=== PATIENT | female | born 1960 | race Caucasian/White ===

== ENCOUNTER → 2020-01-16 | Outpatient (CLI) | payer BC ==
[2020-01-16 10:16] LABS: Basophils # (A) 0.1 k/uL (0-0.2); Basophils % (A) 1 %; Eosinophils # (A) 0.3 k/uL (0-0.7); Eosinophils % (A) 4 %; HCT 49.9 % (34.0-46.0); HGB 15.5 gm/dL (11.4-16.0); Lymphocytes # (A) 1.6 k/uL (1.0-4.8); Lymphocytes % (A) 27 %; MCH 28.7 pg (25.0-35.0); MCV 92.7 fL (80.0-100.0); Mean Platelet Volume 7.5; Monocytes # (A) 0.4 k/uL (0-1.0); Monocytes % (A) 6 %; Neutrophils # (A) 3.7 k/uL (1.3-7.7); Neutrophils % (A) 61 %; Platelet Count 204 k/uL (150-450); RBC 5.38 m/uL (3.80-5.40); RDW 13.4 % (11.5-15.5); WBC 6.1 k/uL (3.8-10.6)
== END | disposition home or self-care (01) ==
LOC: LABPAT 08:26
PROVIDERS: ATTEND Surgery
DX: Z01.818 Encounter for other preprocedural examination (principal); K43.2 Incisional hernia without obstruction or gangrene
CPT/HCPCS: 36415; 85025; 93005

== ENCOUNTER 2020-01-27 06:41 | Observation (INO) | payer BC ==
[2020-01-22 10:55] VITALS: BMI 29.9
[~2020-01-27 06:41] MED LIST: ACETAMINOPHEN TAB 500 MG TAB PO ONE; DEXAMETHASONE SOD PHOSPHATE 10 MG/ML 1 ML VIAL IV ONE; HEPARIN SODIUM,PORCINE 5,000 UNIT/ML 1 ML VIAL SQ ONE; ONDANSETRON 4 MG/2 ML VIAL IVP ONE
[2020-01-27] MEDS: LACTATED RINGERS 1,000 ML IV SCH ×2 (07:37→20:28)
[2020-01-27 07:45] LABS: Glucose,Whole Blood 125 mg/dL (75-99)
--- NOTE | 2020-01-27 07:57 | P.GSHP ---
History of Present Illness H&P Date: 01/27/20 Chief Complaint: Incarcerated ventral hernia 59-year-old female here today with complaints of an incarcerated ventral hernia. Has been increasing in size. Mild pain at times. No change in bowel habits. History of previous umbilical hernia repair. Past Medical History Past Medical History: Cancer, COPD, Diabetes Mellitus, Hyperlipidemia Additional Past Medical History / Comment(s): cervical cancer History of Any Multi-Drug Resistant Organisms: None Reported Past Surgical History: Bladder Surgery, Hernia Repair, Tonsillectomy Additional Past Surgical History / Comment(s): cervical conization Past Anesthesia/Blood Transfusion Reactions: Postoperative Nausea & Vomiting (PONV) Smoking Status: Current every day smoker - Past Family History Father Family Medical History: Cancer Mother Family Medical History: Cancer Medications and Allergies Home Medications Medication Instructions Recorded Confirmed Type Budesonide/Formoterol Fumarate 1 puff INHALATION QID PRN 01/22/20 01/27/20 History [Symbicort 160-4.5 Mcg Inhaler] Meloxicam 15 mg PO DAILY 01/22/20 01/27/20 History Multivitamins, Thera [Multivitamin 1 tab PO DAILY 01/22/20 01/27/20 History (formulary)] Rosuvastatin [Crestor] 10 mg PO DAILY 01/22/20 01/27/20 History Ubidecarenone [Co Q-10] 100 mg PO DAILY 01/22/20 01/27/20 History lisinopriL [Zestril] 5 mg PO DAILY 01/22/20 01/27/20 History metFORMIN HCL [Glucophage] 1,000 mg PO DAILY 01/22/20 01/27/20 History Allergies Allergy/AdvReac Type Severity Reaction Status Date / Time No Known Allergies Allergy Verified 01/27/20 07:18 Surgical - Exam Vital Signs Temp Pulse Resp BP Pulse Ox 97.2 F L 83 16 117/69 98 01/27/20 07:31 01/27/20 07:31 01/27/20 07:31 01/27/20 07:31 01/27/20 07:31 Physical exam: General: Well-developed, well-nourished HEENT: Normocephalic, sclerae nonicteric Abdomen: Nontender, nondistended, incarcerated ventral hernia 5-6 cm above the umbilicus Extremities: No edema Neuro: Alert and oriented Results - Labs Abnormal Lab Results - Last 24 Hours (Table) 01/27/20 Range/Units 07:35 POC Glucose (mg/dL) 125 H (75-99) mg/dL Assessment and Plan (1) Incarcerated ventral hernia Narrative/Plan: Will proceed with repair incarcerated ventral hernia with possible mesh at this time. Risks of bleeding, infection, recurrence, bladder and bowel injury, numbness, nerve injury were discussed with the patient. The patient understands and wishes to proceed. Current Visit: Yes Status: Acute Code(s): K43.6 - OTHER AND UNSP VENTRAL HERNIA WITH OBSTRUCTION, W/O GANGRENE SNOMED Code(s): 112387580
[2020-01-27] MEDS ORDERED: PROPOFOL 10 MG/ML 20 ML VIAL IV ONE (09:05)
[2020-01-27] MEDS ORDERED: fentaNYL (PF) 50 MCG/ML 2 ML AMP ONE (09:05)
[2020-01-27] MEDS ORDERED: GLYCOPYRROLATE 0.2 MG/ML 2 ML VIAL ONE (09:05)
[2020-01-27] MEDS ORDERED: NEOSTIGMINE 1 MG/ML 10 ML VIAL ONE (09:05)
[2020-01-27] MEDS ORDERED: ROCURONIUM 10 MG/ML (10 ML VIAL) IV ONE (09:05)
[2020-01-27] MEDS ORDERED: SUCCINYLCHOLINE CHLORIDE 100 MG/5 ML SYR IV ONE (09:05)
[2020-01-27] MEDS ORDERED: MIDAZOLAM 2 MG/2 ML VIAL ONE (09:05)
[2020-01-27] MEDS ORDERED: BUPIVACAINE (PF) 0.25% 30 ML VIAL SQ ONE (10:16)
[2020-01-27] MEDS ORDERED: ONDANSETRON 4 MG/2 ML VIAL IVP PRN (10:32)
[2020-01-27] MEDS ORDERED: oxyCODONE-APAP 5-325MG 1 EACH TAB PO PRN (10:32)
[2020-01-27] MEDS ORDERED: HYDROmorphone 0.5 MG/0.5 ML SYRINGE IVP PRN (10:32)
[2020-01-27] MEDS ORDERED: NALOXONE 0.4 MG/ML 1 ML VIAL IV PRN (10:32)
[2020-01-27] MEDS: HYDROmorphone 0.5 MG/0.5 ML SYRINGE IVP PRN ×3 (10:35→11:05)
--- NOTE | 2020-01-27 10:39 | P.OP ---
Date of Procedure: 01/27/20 Procedure(s) Performed: PREOPERATIVE DIAGNOSIS: Incarcerated ventral hernia POSTOPERATIVE DIAGNOSIS: Same, recurrent umbilical hernia PROCEDURE: Incarcerated ventral hernia repair with mesh, repair recurrent umbilical hernia SURGEON: Yajaira EBL: Minimal ANESTHESIA: Gen. COMPLICATIONS: None OPERATIVE PROCEDURE: Patient placed on the operating table in the supine position. Abdomen was prepped and draped in usual sterile fashion. A vertical incision was then made superior to the umbilicus. Dissection through the subcutaneous tissues took place using electrocautery. The patient had a total of 4 fascial defects identified. The largest fascial defect measured 4.5 x 3 cm oriented horizontally. A small less than 1 cm defect was just superior and slightly to the right another small less than 1 cm defect was immediately inferior to the right and the patient also had a recurrent umbilical hernia with a less than 1 cm defect. The fascia was cleared circumferentially. The preperitoneal space was likewise dissected using electrocautery. Once we had adequate space in the preperitoneal space the 8 cm ventral ex mesh was placed. The mesh was placed in the preperitoneal space and sutured to the fascia using trans-fascial 0 Ethibond sutures. The smaller less than 1 cm defect were closed using interrupted [id number] 0 Ethibond sutures. Following that the primary fascial defect was reapproximated using interrupted 0 Ethibond mattress sutures horizontally. The edge of the fascia was tacked down using interrupted 0 Ethibond sutures as well. A drain was placed anterior to the fascial defect. This exited from the left lower quadrant abdominal wall and was sutured to the skin using a Ethibond stitch. The subcutaneous tissues were closed using 2-0 Vicryl sutures. The skin was closed using cori. Sterile dressings were applied. DISPOSITION: Stable to recovery room
[2020-01-27] MEDS ORDERED: LACTATED RINGERS 1,000 ML IV ONE ×2 (11:00)
[2020-01-27] MEDS: KETOROLAC 15 MG/ML 1 ML VIAL IVP SCH ×2 (11:05→17:33)
[2020-01-27 11:34] LABS: Glucose,Whole Blood 175 mg/dL (75-99)
[2020-01-27] MEDS: D5-0.45% NACL WITH KCL 20MEQ/L 1,000 ML IV SCH ×2 (12:26→20:28)
[2020-01-27] MEDS ORDERED: IPRATROPIUM-ALBUTEROL 3 ML NEB INHALATION PRN (15:41)
--- NOTE | 2020-01-27 15:43 | P.CONS ---
History of Present Illness - Reason for Consult Consult date: 01/27/20 Medical management Requesting physician: Pramod Gates - History of Present Illness HISTORY OF PRESENT ILLNESS This is a 59-year-old female patient of Dr. Rubi with past medical history of diabetes mellitus type 2, hyperlipidemia, COPD, cervical cancer many years ago. She states she has had a low ventral hernia repair done in the past. She has been brought in the hospital under the care of Dr. Gates status post ventral hernia repair with mesh for incarcerated ventral hernia. The patient states that she felt a little nauseated immediately following procedure but she is feeling better now. She complains of feeling weak and dizzy. No chest pain or shortness of breath. Blood pressures currently 104/68 and pulse ox 92% on 5 L nasal cannula. She has been up to the bathroom and urinated following procedure. She is currently on clear liquids. REVIEW OF SYSTEMS Constitutional: No fever, no chills, no night sweats. No weight change. Reports weaknesss. EENT: No headache. No blurred vision or double vision, no loss of vision. Reports dizziness. No nasal drainage or congestion. No epistaxis. No sore throat. Lungs: No shortness of breath, cough, no sputum production. No wheezing. Cardiovascular: No chest pain, no lower extremity edema. No palpitations. Reports lightheadedness or dizziness. No syncopal episodes. Abdominal: Reports abdominal discomfort. No nausea, vomiting. No diarrhea. No constipation. No bloody or tarry stools. Genitourinary: No dysuria, increased frequency, urgency. No urinary retention. Musculoskeletal: No myalgias. No muscle weakness, no gait dysfunction, no frequent falls. No back pain. No neck pain. Integumentary: No wounds, no lesions. No rash or pruritus. No unusual bruising. No change in hair or nails. Neurologic: No aphasia. No facial droop. No change in mentation. Psychiatric: No depression. No anxiety. No mood swings. Endocrine: Mildly elevated blood sugars. SOCIAL HISTORY Patient is a smoker of one pack per day for 40 years. She smokes marijuana occasionally. She denies any street drug use. She lives at home with her [facility]. She does not utilize a walker or cane. She does not have a nebulizer, no CPAP. She does use inhalers. FAMILY HISTORY Mother at age 76 from bladder cancer. Father at age 86 from pancreatic cancer. She has one brother with history of stroke and diabetes. Patient has 2 sisters and one has history of schizophrenia and uterine cancer. Second sister has no major medical problems. Patient has 4 children with no major medical problems. PHYSICAL EXAMINATION Gen: This is a 59-year-old female. She is resting bed and appears to be comfortable and in no acute distress. is at bedside. HEENT: Head is atraumatic, normocephalic. Pupils equal, round. Sclerae is anicteric. NECK: Supple. No JVD. No lymphadenopathy. No thyromegaly. LUNGS: Clear to auscultation. No wheezes or rhonchi. No intercostal retractions. HEART: Regular rate and rhythm. No murmur. ABDOMEN: Soft. Bowel sounds are decreased. No masses. Mild generalized tenderness. Abdominal binder in place over a midline dressing. No breakthrough bleeding. NANDO drain with serosanguineous fluid EXTREMITIES: No pedal edema. No calf tenderness. Dorsalis pedis +[address] NEUROLOGICAL: Patient is awake, alert and oriented x3. Cranial nerves 2 through 12 are grossly intact. ASSESSMENT AND PLAN 1. Incarcerated ventral hernia repair with mesh. Patient is postop day #0. Pain is currently controlled. Incentive spirometry added to reduce incidence of atelectasis and hospital acquired pneumonia. Continue current pain management, diet is clear liquids to be advanced to regular/consistent carb. 2. Diabetes mellitus type 2. Start NovoLog scale before meals and at bedtime, resume metformin tomorrow morning. Lisinopril 5 mg daily will be resumed in the morning with parameters. 3. Hyperlipidemia. Continue Lipitor 20 mg daily. 4. COPD without exacerbation. DuoNeb 3 times daily if needed 5. DVT prophylaxis. Heparin subcu. 6. GI prophylaxis. Pepcid twice daily. Thank you kindly for this consultation. We will be happy to follow along with you during this hospitalization. Discharge plan: Home. Impression and plan of care have been directed as dictated by the signing physician. Alie Hartley nurse practitioner acting as scribe for signing physician. Past Medical History Past Medical History: Cancer, COPD, Diabetes Mellitus, Hyperlipidemia Additional Past Medical History / Comment(s): cervical cancer History of Any Multi-Drug Resistant Organisms: None Reported Past Surgical History: Bladder Surgery, Hernia Repair, Tonsillectomy Additional Past Surgical History / Comment(s): cervical conization Past Anesthesia/Blood Transfusion Reactions: Postoperative Nausea & Vomiting (PONV) Past Psychological History: Depression Smoking Status: Current every day smoker Past Alcohol Use History: Occasional Additional Past Alcohol Use History / Comment(s): smoker for 40 years 1 ppd Past Drug Use History: Marijuana - Past Family History Father Family Medical History: Cancer Mother Family Medical History: Cancer Medications and Allergies Home Medications Medication Instructions Recorded Confirmed Type Budesonide/Formoterol Fumarate 1 puff INHALATION QID PRN 01/22/20 01/27/20 History [Symbicort 160-4.5 Mcg Inhaler] Meloxicam 15 mg PO DAILY 01/22/20 01/27/20 History Multivitamins, Thera [Multivitamin 1 tab PO DAILY 01/22/20 01/27/20 History (formulary)] Rosuvastatin [Crestor] 10 mg PO DAILY 01/22/20 01/27/20 History Ubidecarenone [Co Q-10] 100 mg PO DAILY 01/22/20 01/27/20 History lisinopriL [Zestril] 5 mg PO DAILY 01/22/20 01/27/20 History metFORMIN HCL [Glucophage] 1,000 mg PO DAILY 01/22/20 01/27/20 History oxyCODONE HCL [OxyIR] 5 mg PO Q6H PRN 3 Days #6 tab 01/27/20 Rx Allergies Allergy/AdvReac Type Severity Reaction Status Date / Time No Known Allergies Allergy Verified 01/27/20 07:18 Physical Exam Vitals: Vital Signs Temp Pulse Resp BP Pulse Ox 01/27/20 14:46 97.6 F 89 18 104/68 92 L 01/27/20 13:47 84 105/73 93 L 01/27/20 13:32 77 102/69 93 L 01/27/20 13:21 92 L 01/27/20 13:17 80 116/75 93 L 01/27/20 13:02 91 113/76 93 L 01/27/20 12:47 86 100/69 90 L 01/27/20 12:33 87 113/70 01/27/20 12:17 85 118/79 92 L 01/27/20 12:02 97.6 F 95 17 121/80 92 L 01/27/20 11:29 80 16 125/70 92 L 01/27/20 11:14 81 16 133/77 94 L 01/27/20 10:59 79 16 143/71 94 L 01/27/20 10:44 94 16 149/79 96 01/27/20 10:29 97.6 F 97 16 167/94 97 01/27/20 07:31 97.2 F L 83 16 117/69 98 Intake and Output 01/27/20 01/27/20 01/27/20 06:59 14:59 22:59 Intake Total 1750 Output Total 10 Balance 1740 Intake: IV 1350 Intake, IV Titration 200 Amount Lactated Ringers 1,000 ml 200 @ 0 mls/hr IV .[facility] Rx#:[id number] Oral 200 Output: Estimated Blood Loss 10 Other: Weight 83 kg Results Labs: Abnormal Lab Results - Last 24 Hours (Table) 01/27/20 01/27/20 Range/Units 07:35 11:32 POC Glucose (mg/dL) 125 H 175 H (75-99) mg/dL
[2020-01-27 16:39] LABS: Glucose,Whole Blood 186 mg/dL (75-99)
[2020-01-27] MEDS: HEPARIN SODIUM,PORCINE 5,000 UNIT/ML 1 ML VIAL SQ SCH (17:31)
[2020-01-27] MEDS: INSULIN ASPART (NovoLOG) 100 UNIT/ML VIAL SQ SCH ×2 (17:32→20:25)
[2020-01-27 20:25] LABS: Glucose,Whole Blood 167 mg/dL (75-99)
[2020-01-27] MEDS: DOCUSATE 100 MG CAP PO SCH (20:28)
[2020-01-27] MEDS: FAMOTIDINE 20 MG TAB PO SCH (20:28)
[2020-01-28] MEDS: HEPARIN SODIUM,PORCINE 5,000 UNIT/ML 1 ML VIAL SQ SCH ×2 (00:07→07:10)
[2020-01-28] MEDS: KETOROLAC 15 MG/ML 1 ML VIAL IVP SCH ×3 (00:07→11:56)
[2020-01-28 06:45] LABS: Glucose,Whole Blood 143 mg/dL (75-99)
[2020-01-28] MEDS: DOCUSATE 100 MG CAP PO SCH (07:11)
[2020-01-28] MEDS: INSULIN ASPART (NovoLOG) 100 UNIT/ML VIAL SQ SCH ×2 (07:11→11:28)
[2020-01-28] MEDS: FAMOTIDINE 20 MG TAB PO SCH (07:11)
[2020-01-28] MEDS: D5-0.45% NACL WITH KCL 20MEQ/L 1,000 ML IV SCH (07:18)
[2020-01-28 07:59] VITALS: RESP 17
[2020-01-28] MEDS ORDERED: ATORVASTATIN 20 MG TAB PO SCH (09:00)
[2020-01-28] MEDS ORDERED: lisinopriL 5 MG TAB PO SCH (09:00)
[2020-01-28] MEDS ORDERED: metFORMIN 500 MG TAB PO SCH (09:00)
[2020-01-28 10:48] LABS: Hemoglobin A1C 7.4 % (4.0-6.0)
[2020-01-28 11:20] LABS: Glucose,Whole Blood 105 mg/dL (75-99)
--- NOTE | 2020-01-28 12:18 | P.DS ---
<Mary Jones - Last Filed: 01/28/20 12:13> Providers Expected date of discharge: 01/28/20 Hospital Course: Discharge diagnosis 1. Incarcerated ventral hernia and recurrent umbilical hernia status post incarcerated ventral hernia repair with mesh and repair of recurrent umbilical hernia Hospital course 59-year-old female with complaints of an incarcerated ventral hernia. She is status post incarcerated ventral hernia repair with mesh and repair of recurrent umbilical hernia. She tolerated surgery well. Her pain is controlled. She denies any nausea or vomiting. She did have a bowel movement. She is afebrile. She is stable for discharge home. Physician Book Agent note has been reviewed by physician. Signing provider agrees with the documented findings, assessment, and plan of care. Patient Condition at Discharge: Stable Plan - Discharge Summary Discharge Rx Participant: No New Discharge Prescriptions: New oxyCODONE HCL [OxyIR] 5 mg PO Q6H PRN 3 Days #6 tab PRN Reason: Breakthrough Pain Nicotine 21Mg/24Hr Patch [Habitrol] 1 each TRANSDERM DAILY #30 patch Docusate [Colace] 100 mg PO BID #30 capsule Continue Ubidecarenone [Co Q-10] 100 mg PO DAILY Multivitamins, Thera [Multivitamin (formulary)] 1 tab PO DAILY Meloxicam 15 mg PO DAILY lisinopriL [Zestril] 5 mg PO DAILY Rosuvastatin [Crestor] 10 mg PO DAILY metFORMIN HCL [Glucophage] 1,000 mg PO DAILY Budesonide/Formoterol Fumarate [Symbicort 160-4.5 Mcg Inhaler] 1 puff INHALATION QID PRN PRN Reason: Dyspnea Discharge Medication List Budesonide/Formoterol Fumarate [Symbicort 160-4.5 Mcg Inhaler] 1 puff INHALATION QID PRN 01/22/20 [History] Meloxicam 15 mg PO DAILY 01/22/20 [History] Multivitamins, Thera [Multivitamin (formulary)] 1 tab PO DAILY 01/22/20 [History] Rosuvastatin [Crestor] 10 mg PO DAILY 01/22/20 [History] Ubidecarenone [Co Q-10] 100 mg PO DAILY 01/22/20 [History] lisinopriL [Zestril] 5 mg PO DAILY 01/22/20 [History] metFORMIN HCL [Glucophage] 1,000 mg PO DAILY 01/22/20 [History] oxyCODONE HCL [OxyIR] 5 mg PO Q6H PRN 3 Days #6 tab 01/27/20 [Rx] Docusate [Colace] 100 mg PO BID #30 capsule 01/28/20 [Rx] Nicotine 21Mg/24Hr Patch [Habitrol] 1 each TRANSDERM DAILY #30 patch 01/28/20 [Rx] Follow up Appointment(s)/Referral(s): Pramod Gates MD [Medical Doctor] - 02/05/20 3:15 pm Holly Rubi DO [Primary Care Provider] - 1 Week (office closed at time of discharge. Please call to make appointment ) Activity/Diet/Wound Care/Special Instructions: No driving while taking Oxycodone No lifting over 10 pounds You may shower. No soaking or tub baths For 2 weeks Very light activity until you are reevaluated at your follow up appointment with your surgeon Keep a log of NANDO drain output and bring with you to your follow-up appointment Milk/strip drains 2-3 times a day Discharge Disposition: HOME SELF-CARE <Pramod Gates - Last Filed: 01/28/20 12:24> Providers Date of admission: 01/28/20 00:31 Attending physician: Pramod Gates Consults: 01/27/20 10:32 Consult Physician Routine Consulting Provider: Yrn Strong Consult Reason/Comments: Medical management Do you want consulting provider notified?: Yes Primary care physician: Holly Rubi - Discharge Diagnosis(es) (1) Incarcerated ventral hernia Current Visit: Yes Status: Acute Hospital Course: As above. Patient doing well today. Pain is controlled. We'll discharge. Follow-up one week.
[2020-01-28 12:43] VITALS: BP 137/80; PULSE 79; TEMP 98.1
--- NOTE | 2020-01-28 14:49 | P.PN ---
Subjective Progress Note Date: 01/28/20 HISTORY OF PRESENT ILLNESS This is a 59-year-old female patient of Dr. Rubi with past medical history of diabetes mellitus type 2, hyperlipidemia, COPD, cervical cancer many years ago. She states she has had a low ventral hernia repair done in the past. She has been brought in the hospital under the care of Dr. Gates status post ventral hernia repair with mesh for incarcerated ventral hernia. The patient states that she felt a little nauseated immediately following procedure but she is feeling better now. She complains of feeling weak and dizzy. No chest pain or shortness of breath. Blood pressures currently 104/68 and pulse ox 92% on 5 L nasal cannula. She has been up to the bathroom and urinated following procedure. She is currently on clear liquids. 01/27:patient is seen today in follow-up. She has been afebrile, heart rate 78, blood pressure 100/70, pulse ox 93% on 3 L. Oxygen removed and patient was running 95%. Discussed in detail the need for patient to stop smoking. IBRAHIMA lr ordered prior to discharge. Nicotine patch will be sent to her pharmacy. Blood sugars been running between 143-186. Patient will resume her metformin. She remains with binder in place. Pain is currently controlled. She is anticipating discharge home today. REVIEW OF SYSTEMS Constitutional: No fever, no chills, no night sweats. No weight change. Denies weaknesss. EENT: No headache. No blurred vision or double vision, no loss of vision. enies dizziness. No nasal drainage or congestion. No epistaxis. No sore throat. Lungs: No shortness of breath, cough, no sputum production. No wheezing. Cardiovascular: No chest pain, no lower extremity edema. No palpitations. Reports lightheadedness or dizziness. No syncopal episodes. Abdominal: Reports abdominal discomfort. No nausea, vomiting. No diarrhea. No constipation. No bloody or tarry stools. Genitourinary: No dysuria, increased frequency, urgency. No urinary retention. Musculoskeletal: No myalgias. No muscle weakness, no gait dysfunction, no frequent falls. No back pain. No neck pain. Integumentary: No wounds, no lesions. No rash or pruritus. No unusual bruising. No change in hair or nails. Neurologic: No aphasia. No facial droop. No change in mentation. Psychiatric: No depression. No anxiety. No mood swings. Endocrine: Mildly elevated blood sugars. PHYSICAL EXAMINATION Gen: This is a 59-year-old female. She is resting bed and appears to be comfortable and in no acute distress. HEENT: Head is atraumatic, normocephalic. Pupils equal, round. Sclerae is anicteric. NECK: Supple. No JVD. No lymphadenopathy. No thyromegaly. LUNGS: Clear to auscultation. No wheezes or rhonchi. No intercostal retractions. HEART: Regular rate and rhythm. No murmur. ABDOMEN: Soft. Bowel sounds are decreased. No masses. Mild generalized tenderness. Abdominal binder in place over a midline dressing. No breakthrough bleeding. NANDO drain with serosanguineous fluid EXTREMITIES: No pedal edema. No calf tenderness. Dorsalis pedis +[address] NEUROLOGICAL: Patient is awake, alert and oriented x3. Cranial nerves 2 through 12 are grossly intact. ASSESSMENT AND PLAN 1. Incarcerated ventral hernia repair with mesh. Patient is postop day #1. Pain is currently controlled. Incentive spirometry added to reduce incidence of atelectasis and hospital acquired pneumonia. Continue current pain management, diet is consistent carb. 2. Diabetes mellitus type 2. continue NovoLog scale before meals and at bedtime, resume metformin todayg. Lisinopril 5 mg daily will be resumed. 3. Hyperlipidemia. Continue Lipitor 20 mg daily. 4. COPD without exacerbation. DuoNeb 3 times daily if needed 5. DVT prophylaxis. Heparin subcu. 6. GI prophylaxis. Pepcid twice daily. Discharge plan: Home. Impression and plan of care have been directed as dictated by the signing physician. Alie Hartley nurse practitioner acting as scribe for signing physician. Objective - Vital Signs Vital signs: Vital Signs Temp 98 F 01/28/20 07:00 Pulse 78 01/28/20 07:00 Resp 17 01/28/20 07:00 BP 109/70 01/28/20 07:00 Pulse Ox 93 L 01/28/20 07:00 Intake & Output 01/27/20 01/28/20 01/28/20 18:59 06:59 18:59 Intake Total 1950 Output Total 80 45 Balance 1870 -45 Weight 83 kg Intake: IV 1350 Intake, IV Titration 200 Amount Lactated Ringers 1,000 ml 200 @ 0 mls/hr IV .[facility] Rx#:[id number] Oral 400 Output: Drainage 70 45 Left Abdomen 70 45 Estimated Blood Loss 10 Other: # Voids 4 - Labs Labs: Abnormal Lab Results - Last 24 Hours (Table) 01/27/20 01/27/20 01/27/20 Range/Units 11:32 16:38 20:23 POC Glucose (mg/dL) 175 H 186 H 167 H (75-99) mg/dL 01/28/20 Range/Units 06:43 POC Glucose (mg/dL) 143 H (75-99) mg/dL
== END 2020-01-28 13:09 | disposition home or self-care (01) ==
LOC: OR 06:41 → 4SSUR 10:29 → OR 01-28 04:29
PROVIDERS: ADMIT Surgery; ATTEND Surgery
DX: K43.6 Other and unspecified ventral hernia with obstruction, without gangrene (principal); K42.9 Umbilical hernia without obstruction or gangrene; E78.5 Hyperlipidemia, unspecified; E11.9 Type 2 diabetes mellitus without complications; F17.210 Nicotine dependence, cigarettes, uncomplicated; J44.9 Chronic obstructive pulmonary disease, unspecified; F32.9 Major depressive disorder, single episode, unspecified; M81.0 Age-related osteoporosis without current pathological fracture; R42 Dizziness and giddiness; R11.0 Nausea; Z79.51 Long term (current) use of inhaled steroids; Z79.1 Long term (current) use of non-steroidal anti-inflammatories (NSAID); Z79.84 Long term (current) use of oral hypoglycemic drugs; Z79.899 Other long term (current) drug therapy; Z98.890 Other specified postprocedural states; Z85.41 Personal history of malignant neoplasm of cervix uteri; Z98.51 Tubal ligation status; Z80.52 Family history of malignant neoplasm of bladder; Z80.0 Family history of malignant neoplasm of digestive organs; Z83.3 Family history of diabetes mellitus; Z81.8 Family history of other mental and behavioral disorders; Z80.49 Family history of malignant neoplasm of other genital organs; Z82.3 Family history of stroke
CPT/HCPCS: 94760; 83036; 49561; 49568; 49585; G0378; C1781; J2250; J1644 ×2; J1100; J2710; J0690; J2405; J3010; J1885 ×2; J0330; J2704; J1170